=== PATIENT | male | born 1975 | race American Indian/Alaskan Native ===

== ENCOUNTER → 2022-06-21 14:50 | Outpatient (BNVA) | payer OTHER, SELFPAY | PROVIDERS: PCP Internal Medicine; Visit Provider Urology | DX: Z30.2 Encounter for sterilization (principal); F41.8 Other specified anxiety disorders | CPT/HCPCS: 55250 ==

== ENCOUNTER 2024-01-01 10:30 | Outpatient (AMB) | payer OTHER, SELFPAY ==
--- NOTE | 2024-01-01 10:31 | AM.OFFWIN_ITS ---
Intake Vital Signs 01/01/24 10:32 Height 5 ft 9 in Weight 271 lb BMI 40.0 BP 150/100 H Blood Pressure Location Lt brachial Position Sitting Pulse 79 Pulse Source Pulse Oximeter Temp 97.1 F Temp Source Temporal Artery Scan Pulse Oximetry (%) 96 Oxygen Delivery Method Room Air Intake Visit Reasons: EP ?Yeast Infection Intake Note: pt is here today for yeast infection started 1 week ago. Pt gave verbal consent to leave results on vm Patient Tobacco Use Status: Never used Tobacco Allergies No Known Allergies Allergy (Verified 01/01/24 10:58) Medication List - Last Reconciled 01/01/24 by Lorenzo Vieyra MD amlodipine 5 mg PO DAILY ketoconazole 2% 1 appl topical DAILY losartan 50 mg (2 x 25 mg) PO DAILY metoprolol tartrate 25 mg PO BID Do you need a note to return to daycare/school/sports/work: No HPI EP ?Yeast Infection HPI Details 48-year-old male presents to the office for a sick visit. Patient has noticed a rash on the right side of his penis for the past week. Coincidentally, his is suffering from an yeast infection. Does not report any symptoms of discharge or increased frequency of urination. Also gives history of erectile dysfunction. He reports his libido is low and also decreased strength in his erections. [facility] Medical History Hypertension Surgical History History of hand surgery Family History Father No problems noted. Mother No problems noted. Brother In good health Mental health disorder Sister In good health Daughter In good health Daughter In good health Daughter In good health Social History Housing: House Alcohol intake: current Alcohol intake frequency: holidays/special occasions only Patient Tobacco Use Status: Never used Tobacco Tobacco use type: Cigarette e-Cigarette/Vaping Use: Never Used Second Hand Smoke Exposure: No service: No Current occupational status: employed Cognitive needs: No Hearing needs: No Vision needs: Yes (glasses) Physical Exam Vital Signs: Last Vital Signs Temp 97.1 F 01/01/24 10:32 Pulse 79 01/01/24 10:32 BP 150/100 H 01/01/24 10:32 Pulse Ox 96 01/01/24 10:32 Oxygen Delivery Method Room Air 01/01/24 10:32 BMI result Body Mass Index 40.0 Other: External genitalia: Penis: Uncircumcised. On retraction of the foreskin, on the right lateral side. Assessment & Plan Assessment & Plan (1) Hypertension: Code(s): I10 - Essential (primary) hypertension Plan: Blood pressure is elevated. Will await blood work results before adjusting medications. (2) Balanitis: Code(s): N48.1 - Balanitis Plan: Ketoconazole has been ordered. Blood work has been ordered. Diabetes needs to be ruled out. Orders: Orders Lipid Panel Today I10 - Essential (primary) hypertension Lyme IgG/IgM w/reflex to WB Today I10 - Essential (primary) hypertension Thyroid Stimulating Hormone Today I10 - Essential (primary) hypertension Basic Metabolic Panel Today I10 - Essential (primary) hypertension Complete Blood Count no Diff Today I10 - Essential (primary) hypertension Liver Panel Today I10 - Essential (primary) hypertension UA and rflx microscopic Today I10 - Essential (primary) hypertension Hemoglobin A1c Today I10 - Essential (primary) hypertension Medications: New ketoconazole 2% 1 appl topical DAILY 30 grams 1RF Coding Level of Care Code Est Pt Level 4 (09607) Diagnoses Hypertension I10 Balanitis N48.1
[2024-01-01 10:32] VITALS: BP 150/100; PULSE 79; TEMP 36.2; O2SAT 96; BMI 40.0
== END 2024-01-01 13:31 | disposition home or self-care (01) ==
PROVIDERS: PCP Internal Medicine; Visit Provider Internal Medicine
DX: I10 Essential (primary) hypertension (principal); N48.1 Balanitis
CPT/HCPCS: 99214

== ENCOUNTER 2024-01-01 10:49 | Outpatient (REF) | payer OTHER, SELFPAY ==
[2024-01-01 13:38] LABS: Appearance Urine Clear; Color Urine Dark Yellow; Glucose Urine UA Negative (Negative); Leukocyte Esterase Urine Negative (Negative); Nitrite Urine Negative (Negative); Specific Gravity - Urine >= 1.030 (1.005-1.025); UMIC TRIGGER UA YES; Urine Blood Moderate (2+) (Negative); Urine Ketones 80 mg/dL (Negative); Urine Protein Trace mg/dL (Neg-Trace)
[2024-01-01 13:38] LABS: Hematocrit 45.6 % (42.0-52.0); Hemoglobin 15.4 g/dl (14.0-18.0); Mean Corpuscular HGB Conc 33.8 g/dl (31.0-36.0); Mean Corpuscular Hemoglobin 29.7 pg (27.0-33.0); Mean Platelet Volume 10.6 fL (9.4-12.4); Platelet Count 301 X10*3/uL (160-400); Red Blood Count 5.18 X10*6/uL (4.60-5.80); Red Cell Distribution Width 12.4 % (11.0-16.0)
[2024-01-01 13:45] LABS: Bacteria Urine None Seen (None Seen); Hyaline Casts Urine 0-2 /LPF (0-2); RBC Urine >20 /HPF (0-2); Squamous Epithelial Cell Urine 0-2 /HPF (0-2); WBC Urine 0-5 /HPF (0-5)
[2024-01-01 13:56] LABS: Alanine Aminotransferase 71 U/L (0-40); Albumin Level 4.6 g/dL (3.5-5.0); Alkaline Phosphatase 68 U/L (39-117); Anion Gap 15 (12-20); Aspartate Amino Transferase 87 U/L (5-37); Bilirubin Direct 0.4 mg/dL (0.0-0.5); Bilirubin Total 1.1 mg/dL (0.0-1.0); Blood Urea Nitrogen 13 mg/dL (9-16); Calcium 9.6 mg/dL (8.4-10.2); Carbon Dioxide 27 mmol/L (22-29); Chloride 104 mmol/L (96-108); Cholesterol 175 mg/dL (<200); Estimated Glomerular Filt Rate 55; Glucose Random 92 mg/dL (60-115); HDL Cholesterol 49 mg/dL (>40); LDL Cholesterol Calculated 106 mg/dL (<100); Potassium 3.5 mmol/L (3.3-5.1); Sodium 142 mmol/L (135-145); Total Protein 9.1 g/dL (6.5-8.0); Triglycerides 102 mg/dL (<150)
[2024-01-01 14:01] LABS: Estimated Average Glucose 94 mg/dL; Hemoglobin A1C 111.9193 umol/L; Hemoglobin A1c % 4.9 % (<6.0)
[2024-01-01 14:13] LABS: Thyroid Stimulating Hormone 1.17 uIU/mL (0.32-4.0)
[2024-01-03 13:03] LABS: Lyme Abs Screen <0.90 index
== END 2024-01-01 10:50 | disposition home or self-care (01) ==
LOC: HO.HMGCLDS 10:49
PROVIDERS: PCP Internal Medicine; Visit Provider Internal Medicine
DX: I10 Essential (primary) hypertension (principal)
CPT/HCPCS: 36415; 80048; 80061; 80076; 81001; 83036; 84443; 85027; 86617; 86618

== ENCOUNTER 2024-03-19 15:35 | Outpatient (AMB) | payer OTHER, SELFPAY ==
--- NOTE | 2024-03-19 15:37 | MHC.PC.OV ---
Vital Signs 03/19/24 15:39 Height 5 ft 9 in Weight 227 lb 2 oz BMI 33.5 BP 130/88 Blood Pressure Location Lt brachial Position Sitting Pulse 65 Pulse Source Pulse Oximeter Pulse Oximetry (%) 97 Oxygen Delivery Method Room Air Intake Visit Reasons: pe Intake Note: Patient is here today for a physical. Pin Cleaner Required: No Bedspread Folder: Not Required per policy Accompanied by: Self / Same As Patient Allergies No Known Allergies Allergy (Verified 03/20/24 15:54) Medication List - Last Reconciled 03/20/24 by Lorenzo Vieyra MD ketoconazole 2% 1 appl topical DAILY sildenafil (Viagra) 100 mg PO DAILY PRN Tobacco use date assessed: 03/19/24 Dental Screening Dental Screen Date: 03/19/24 Did you have a dental visit in the last 12 months?: Yes Did you have a dental problem in the last 6 months where you did not have access to dental care?: No Was dental information given to patient?: Patient has dentist HPI pe HPI Details 49-year-old male presents to the office requesting an annual physical. [facility] Medical History Hypertension Surgical History History of hand surgery Family History Father No problems noted. Mother No problems noted. Brother In good health Mental health disorder Sister In good health Daughter In good health Daughter In good health Daughter In good health Social History Housing: House Alcohol intake: current Alcohol intake frequency: does not drink Patient Tobacco Use Status: Never used Tobacco Tobacco use type: Cigarette e-Cigarette/Vaping Use: Never Used Second Hand Smoke Exposure: No service: No Current occupational status: employed Cognitive needs: No Hearing needs: No Vision needs: Yes (glasses) Questionnaire PHQ-9 Over the last 2 weeks, how often have you been bothered by any of the following problems? 1. Little interest or pleasure in doing things: not at all 2. Feeling down, depressed, or hopeless: not at all 3. Trouble falling or staying asleep, or sleeping too much: not at all 4. Feeling tired or having little energy: not at all 5. Poor appetite or overeating: not at all 6. Feeling bad about yourself - or that you are a failure or have let yourself or your family down: not at all 7. Trouble concentrating on things, such as reading the newspaper or watching television: not at all 8. Moving or speaking so slowly that other people could have noticed. Or the opposite - being so fidgety or restless that you have been moving around a lot more than usual: not at all 9. Thoughts that you would be better off or of hurting yourself in some way: not at all Total score: 0 Depression Screening Interpretation: Negative Depression Screening Done: Yes Source: Developed by Drs. Panchito Strong, Jaimee Antunez, Jona Brooks and colleagues, with an educational aleyda from [employer]. Thrive Questionnaire Date Thrive assessed: 03/19/24 I am a: Patient What is your living situation today?: I have a steady place to live Within the past 12 months, did the food you bought not last and you didn't have the money to get more?: Never true Within the past 12 months, did you worry whether your food would run out before you got money to buy more?: Never true Do you have trouble paying for medicines?: No Do you have trouble getting transportation to medical appointments?: No Do you have trouble paying your heating and electricity bill?: No Do you have trouble taking care of your child, family member or friend?: No Do you have trouble with day-to-day activities such as bathing, preparing meals, shopping, managing finances, etc.?: No Are you currently unemployed and looking for a job?: No Are you interested in more education?: No Currently or been in a relationship where the following occur: no concerns reported THRIVE Score: 0 AUDIT C Alcohol Use Questionnaire (AUDIT-C) 1. How often do you have a drink containing alcohol?: Never Total Score: 0 LENOORA-7 AMB Questionnaire LEOONRA-7 Date LEONORA - 7 assessed: 03/19/24 Feeling nervous, anxious, or on edge: 0 = Not at all Not being able to stop or control worryin = Not at all Worrying too much about different things: 0 = Not at all Trouble relaxin = Not at all Being so restless that it is hard to sit still: 0 = Not at all Becoming easily annoyed or irritable: 0 = Not at all Feeling afraid as if something awful might happen: 0 = Not at all Total LEONORA-7 score (0-4 normal; 5-9 mild; 10-14 moderate; 15-21 severe): 0 Source: Developed by Drs. Panchito Strong, Jaimee Antunez, Jona Brooks and colleagues, with an educational aleyda from [employer]. Physical exam (Primary Care) Vital Signs: Last Vital Signs Pulse 65 03/19/24 15:39 BP 130/88 03/19/24 15:39 Pulse Ox 97 03/19/24 15:39 Oxygen Delivery Method Room Air 03/19/24 15:39 Care Plan Goal for BP management: Blood pressure is stable. Continue current medications. BMI result Body Mass Index 33.5 BMI Assessment/Plan discussion: High (1 lb per week weight loss suggested.) BMI High, discussed plan: lifestyle, weight reduction, dietary and physical activity Tobacco/Smoking Status: Tobacco use Status Tobacco use date assessed 03/19/24 03/19/24 15:47 Patient Tobacco Use Status Never used Tobacco 03/19/24 15:47 Tobacco use type Cigarette 03/19/24 15:47 e-Cigarette/Vaping Use Never Used 03/19/24 15:47 PHQ-9: PHQ-9 Score PHQ-9: Total score 0 03/20/24 12:40 Depression Screening Interpretation: Negative Thrive Assessment: Date of Thrive Assessment Date Thrive assessed 03/19/24 03/19/24 15:47 Currently or been in a relationship where the following occur: no concerns reported Const General: cooperative and healthy appearing Nutritional Appearance: well nourished Orientation/consciousness: patient oriented x3 Limitations: no limitations HENMT Head: Yes normal to inspection Eyes General: appearance normal, both eyes and all related structures Neck Neck: Yes normal visual inspection Chest Chest palpation & inspection: normal palpation of entire chest wall Resp Effort & Inspection: normal respiratory effort Neuro General: patient oriented x3 Assessment and Plan Assessment & Plan (1) Adult general medical exam: Code(s): Z00.00 - Encounter for general adult medical examination without abnormal findings Plan: Fasting blood work has been ordered. Will call with the results. (2) Hypertension: Code(s): I10 - Essential (primary) hypertension Medications: Refilled sildenafil (Viagra) administer 30 minutes to 4 hours before activity 100 mg PO DAILY PRN 8 tabs 1RF sexual activity Coding Level of Care Code Est Pt Prev Care 40-64y(68280) Diagnoses Adult general medical exam Z00.00 Hypertension I10
[2024-03-19 15:39] VITALS: BP 130/88; PULSE 65; O2SAT 97; BMI 33.5
== END 2024-03-19 16:13 | disposition home or self-care (01) ==
PROVIDERS: PCP Internal Medicine; Visit Provider Internal Medicine
DX: Z00.00 Encounter for general adult medical examination without abnormal findings (principal); I10 Essential (primary) hypertension
CPT/HCPCS: 99396

== ENCOUNTER 2024-05-13 13:22 | Outpatient (AMB) | payer OTHER, SELFPAY ==
--- NOTE | 2024-05-13 13:43 | MHC.OFFWIV ---
Intake Vital Signs 05/13/24 13:44 Height 5 ft 9 in Weight 229 lb BMI 33.8 BP 132/84 Blood Pressure Location Lt brachial Position Sitting Pulse 65 Pulse Source Pulse Oximeter Temp 98.2 F Temp Source Oral Pulse Oximetry (%) 98 Oxygen Delivery Method Room Air Intake Visit Reasons: left foot 2nd toe purple Intake Note: pt c/o left 2nd toe bruising. Hit while hiking Saturday. No pain Patient Tobacco Use Status: Never used Tobacco Allergies No Known Allergies Allergy (Verified 05/13/24 13:43) Do you need a note to return to daycare/school/sports/work: No HPI HPI Comments History of Present Illness Details This is a 49-year-old male presenting for evaluation of discoloration in the toenail of his left 2nd toe. Patient states he went hiking up [place] on Saturday and denies any overt injury or trauma at that time. Patient states he noted the discoloration under his toenail on Saturday. Patient denies having any pain or discharge from the lesion. [facility] Medical History Hypertension Surgical History History of hand surgery Family History Father No problems noted. Mother No problems noted. Brother In good health Mental health disorder Sister In good health Daughter In good health Daughter In good health Daughter In good health Social History Housing: House Alcohol intake: current Alcohol intake frequency: does not drink Patient Tobacco Use Status: Never used Tobacco Tobacco use type: Cigarette e-Cigarette/Vaping Use: Never Used Second Hand Smoke Exposure: No service: No Current occupational status: employed Cognitive needs: No Hearing needs: No Vision needs: Yes (glasses) Review of Systems Const All systems reviewed & are unremarkable except as noted in HPI and below Reports no additional complaints Skin/Breast Reports system reviewed and no additional complaints, except as documented Neuro Reports no additional complaints Psych Reports no additional complaints Mukesh/Lymph Reports no additional complaints Physical Exam Vital Signs: Last Vital Signs Temp 98.2 F 07/31/24 13:44 Pulse 65 05/13/24 13:44 BP 132/84 05/13/24 13:44 Pulse Ox 98 05/13/24 13:44 Oxygen Delivery Method Room Air 05/13/24 13:44 BMI result Body Mass Index 33.8 Const General: cooperative, healthy appearing, comfortable, no acute distress, well developed, alert and awake Nutritional Appearance: average body habitus Orientation/consciousness: patient oriented x3 Limitations: no limitations Skin Lesions: lesion noted (subungual hematoma left 2nd toenail; non.tender to examination) Trauma: no lacerations or abrasions Wounds: no wounds Neuro General: patient oriented x3 Extrem Left lower extremity: foot (No pain to palpation of the metatarsals of L foot or phalanges of 2nd toe) Details: normal capillary refill, abnormal to inspection and toes with normal ROM; no tenderness Psych Appearance: grossly normal Mental Status: mental status grossly normal Insight: Good insight present (Psych) Judgement: Good judgement present (Psych) Assessment & Plan Assessment & Plan (1) Subungual hematoma of foot: Comment: There is no evidence of a cellulitis and no pain to palpation of the toenail. No further treatment is warranted at this time. Code(s): S90.229A - Contusion of unspecified lesser toe(s) with damage to nail, initial encounter Qualifiers: Encounter type: initial encounter Laterality: left Qualified Code(s): S90.222A - Contusion of left lesser toe(s) with damage to nail, initial encounter Plan: Hematoma will resolve on its own, patient is counseled that the toenail may fall off eventually, however no further treatment is warranted at this time. Coding Level of Care Code Est Pt Level 3 (69560) Diagnoses Subungual hematoma of left foot, initial encounter S90.222A Encounter type: initial encounter Laterality: left Time Spent (min) 20
[2024-05-13 13:44] VITALS: BP 132/84; PULSE 65; TEMP 36.8; O2SAT 98; BMI 33.8
== END 2024-05-13 14:35 | disposition home or self-care (01) ==
PROVIDERS: PCP Internal Medicine; Visit Provider Physician Assistant
DX: S90.222A Contusion of left lesser toe(s) with damage to nail, initial encounter (principal)
CPT/HCPCS: 99213

== ENCOUNTER 2024-09-24 08:27 | Outpatient (AMB) | payer OTHER, SELFPAY ==
--- NOTE | 2024-09-24 08:32 | MHC.PC.OV ---
Vital Signs 09/24/24 08:33 Height 5 ft 9 in Weight 232 lb 8 oz BMI 34.3 BP 130/90 H Blood Pressure Location Lt brachial Position Sitting Pulse 68 Pulse Source Pulse Oximeter Pulse Oximetry (%) 98 Oxygen Delivery Method Room Air Intake Visit Reasons: 6mth f/u Intake Note: Patient is here to follow up on HTN. Squadron Worker Required: No Agency Sales Management Assistant: Not Required per policy Accompanied by: Self / Same As Patient Allergies No Known Allergies Allergy (Verified 09/24/24 09:14) Medication List - Last Reconciled 09/24/24 by Katalina Restrepo PA-C losartan 50 mg PO DAILY sildenafil (Viagra) 100 mg PO DAILY PRN Tobacco use date assessed: 09/24/24 Dental Screening Dental Screen Date: 03/19/24 [facility] Medical History (Updated 09/24/24 @ 09:12 by Katalina Restrepo PA-C) Screening for colon cancer Hypertension Surgical History History of hand surgery Family History Father No problems noted. Mother No problems noted. Brother In good health Mental health disorder Sister In good health Daughter In good health Daughter In good health Daughter In good health Social History Housing: House Alcohol intake: current Alcohol intake frequency: does not drink Patient Tobacco Use Status: Never used Tobacco Tobacco use type: Cigarette e-Cigarette/Vaping Use: Never Used Second Hand Smoke Exposure: No service: No Current occupational status: employed Cognitive needs: No Hearing needs: No Vision needs: Yes (glasses) Questionnaire Thrive Questionnaire Date Thrive assessed: 03/19/24 LEONORA-7 AMB Questionnaire LEONORA-7 Date LEONORA - 7 assessed: 03/19/24 Source: Developed by Drs. Panchito Strong, Jaimee Antunez, Jona Brooks and colleagues, with an educational aleyda from [employer]. Physical exam (Primary Care) Vital Signs: Last Vital Signs Pulse 68 09/24/24 08:33 BP 130/90 H 09/24/24 08:33 Pulse Ox 98 09/24/24 08:33 Oxygen Delivery Method Room Air 09/24/24 08:33 BMI result Body Mass Index 34.3 Tobacco/Smoking Status: Tobacco use Status Tobacco use date assessed 09/24/24 09/24/24 08:38 Patient Tobacco Use Status Never used Tobacco 09/24/24 08:38 Tobacco use type Cigarette 09/24/24 08:38 e-Cigarette/Vaping Use Never Used 09/24/24 08:38 Thrive Assessment: Date of Thrive Assessment Date Thrive assessed 03/19/24 09/24/24 08:38 Coding Level of Care Code Est Pt Prev Care 40-64y(62422) Diagnoses Adult general medical exam Z00.00 Screening for colon cancer Z12.11 Hypertension I10 Assessment & Plan Assessment & Plan (1) Adult general medical exam: Code(s): Z00.00 - Encounter for general adult medical examination without abnormal findings Category: Medical Plan: see below (2) Screening for colon cancer: Code(s): Z12.11 - Encounter for screening for malignant neoplasm of colon Category: Medical Plan: see below (3) Hypertension: Code(s): I10 - Essential (primary) hypertension Category: Medical Plan: see below Plan Plan - Reschedule a follow-up visit in four weeks. - Restarting antihypertensive medication, reintroducing Losartan at a lower dose of 50 mg and reassess BP in 4 weeks - Carry out fasting blood work to monitor liver, cholesterol, and other relevant markers. - Order a colonoscopy as the patient has never undergone one. - Patient to obtain an influenza vaccine. Orders: Orders Complete Blood Count Auto Diff Today Z00.00 - Encounter for general adult medical examination without abnormal findings Comprehensive [place]. Panel Fast Today Z00.00 - Encounter for general adult medical examination without abnormal findings Liver Panel Today Z00.00 - Encounter for general adult medical examination without abnormal findings Hemoglobin A1c Today E11.9 - Type 2 diabetes mellitus without complications Vitamin B12 and Folate Today R79.89 - Other specified abnormal findings of blood chemistry C Reactive Protein Today Z00.00 - Encounter for general adult medical examination without abnormal findings Lipid Panel Today Z00.00 - Encounter for general adult medical examination without abnormal findings TSH reflex Free T4 Today Z00.00 - Encounter for general adult medical examination without abnormal findings Vitamin D 25-OH Total Today R79.89 - Other specified abnormal findings of blood chemistry Erythrocyte Sedimentation Rate Today Z00.00 - Encounter for general adult medical examination without abnormal findings Referrals Gastroenterology Referral R76.8 - Other specified abnormal immunological findings in serum, Z00.00 - Encounter for general adult medical examination without abnormal findings, Z12.11 - Encounter for screening for malignant neoplasm of colon Medications: New losartan 50 mg PO DAILY 30 tabs 2RF HTN Refilled sildenafil (Viagra) administer 30 minutes to 4 hours before activity 100 mg PO DAILY PRN 8 tabs 1RF sexual activity Scribe Plan - Not visible on output: History of Present Illness The patient is a 49-year-old male presenting for an annual physical examination. In addition the patient has a history of essential hypertension, which has been managed intermittently. He was previously on Losartan, but discontinued its use due to a medical event resulting in dizziness and high heart rate, leading to an emergency room visit. Following this, he discontinued all antihypertensive medications approximately a year ago and experienced significant weight loss, losing 60 pounds. He reports his blood pressure was significantly elevated in the past, requiring increased medication doses. Currently, he has not been on any blood pressure medication since around November or December of last year and reports no recent chest pain. The patient also has elevated liver enzymes. He experienced a severe episode of pain under his right ribs during Thanksgi, associated with nausea and vomiting, which resolved with ibuprofen by the following day. This episode was described as severe and the worst pain he has experienced, but since then, he has not had recurring episodes. There is a history of the patient's enzymes being slightly elevated; however, no continuous symptoms have been noticed post the Thanksgiving incident. In terms of cholesterol, it is noted his levels are elevated, and he has been considering starting medication for management. He exercises two times a week, despite some disruption from holiday activities. He denies any recent intentional or unintentional weight gain or loss post the last significant weight loss. 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 - Exercise: Engages in physical activity by attending the gym twice a week. - Alcohol: Drinks rarely, typically only during holidays. - Smoking: Denies current or past smoking. - Substance Use: Denies use of drugs. - Nutrition: Practices conscious diet and exercise for weight management. Review of Systems - Cardiovascular: Denies chest pain. - Gastrointestinal: Reports an episode of severe pain with nausea and vomiting in the past, currently resolved. - Genitourinary: Denies issues with urination. - Endocrine: Denies significant weight loss or gain after intentional weight loss. Physical Exam Appearance: Alert. Oriented X3. No acute distress. Head: Normal external exam. Normocephalic. Atraumatic. No [place] signs noted. No raccoon eyes noted. Eyes: Pupils are equal, round, and reactive to light. Extraocular movements intact. Conjunctiva and sclera normal. Eyelids normal. Ears: External auditory canal normal. Tympanic membranes normal. Throat: Pharynx normal. Uvula midline. Moist mucous membranes. No trismus noted. No drooling noted. No muffled voice noted. Neck: Normal inspection. Neck supple. Full range of motion. No adenopathy. Thyroid Normal. No meningeal signs. No neck mass noted. Cardiovascular: Normal heart rate and rhythm. Heart sound normal. No murmurs noted. Pulses normal throughout. Respiratory: No respiratory distress. Painless inspiration. Breath sounds normal. No wheezes/rales/rhonchi noted. Chest nontender. No accessory muscle usage noted or decreased air movement noted. Abdomen: Soft and nontender. Bowel sounds normal in all 4 quadrants. No distention noted. No organomegaly noted. No visible injury noted. Back: No costovertebral angle tenderness. Full range of motion noted. Skin: Skin warm and dry. Normal skin color. Normal skin turgor. No rashes/lesions/lacerations noted. Extremities: No lower extremity edema. Extremities exhibit normal range of motion. Extremities nontender. Neuro: Oriented X 3. No motor deficit. No sensory deficit. Reflexes normal. Results - Labs: Liver enzymes noted to be slightly elevated; no anemia detected. - Tests: Testing for Lyme disease returned negative. Plan - Reschedule a follow-up visit in four weeks. - Restarting antihypertensive medication, reintroducing Losartan at a lower dose of 50 mg and reassess BP in 4 weeks - Carry out fasting blood work to monitor liver, cholesterol, and other relevant markers. - Order a colonoscopy as the patient has never undergone one. - Patient to obtain an influenza vaccine. Patient was informed and verbally consented to the use of an ambient scribe for clinic note documentation during this visit. Discussion Notes During the consultation, I discussed with the patient the importance of addressing his elevated blood pressure and potential reintroduction of medication. We agreed to initiate Losartan at a lower dose, considering his previous adverse reaction to a higher dosage. I explained the necessity of conducting fasting blood work to further assess liver function and cholesterol levels. We also discussed the need for a colonoscopy due to age-related screening recommendations. I emphasized the importance of continued lifestyle modifications, including exercise and a monitored diet, in managing his cardiovascular risks. The patient was advised to get a flu shot and agreed to the proposed management plan, understanding the potential benefits and risks associated with each step. Patient Instructions - Return for follow-up in four weeks. - Restart blood pressure medication as advised, starting at a lower dose. - Schedule and prepare for fasting blood work. - Book an appointment for a colonoscopy. - Obtain flu vaccination. - Maintain diet and exercise regimen. - Notify us if you experience any new symptoms or exacerbation of current symptoms. - Contact us if you have any questions or concerns regarding the plan.
[2024-09-24 08:33] VITALS: BP 130/90; PULSE 68; O2SAT 98; BMI 34.3
== END 2024-09-24 09:10 | disposition home or self-care (01) ==
PROVIDERS: PCP Internal Medicine; Visit Provider Physician Assistant Medical
DX: Z00.00 Encounter for general adult medical examination without abnormal findings (principal); Z12.11 Encounter for screening for malignant neoplasm of colon; I10 Essential (primary) hypertension

== ENCOUNTER → 2024-09-24 08:27 | Outpatient (BNVA) | payer OTHER, SELFPAY | PROVIDERS: PCP Internal Medicine; Visit Provider Internal Medicine ==

== ENCOUNTER 2024-12-07 10:17 | Outpatient (REF) | payer OTHER, SELFPAY ==
[2024-12-07 10:44] LABS: MANUAL DIFF FLAG NO
[2024-12-07 10:58] LABS: Basophils Percent Auto 0.6 % (0-2); Eosinophils Absolute Auto 0.1 X10*3/uL (0.0-0.4); Eosinophils Percent Auto 2.1 % (0-4); Hematocrit 46.1 % (42.0-52.0); Hemoglobin 15.5 g/dl (14.0-18.0); Imm Gran Abs Auto 0.02 X10*3/uL (0.00-0.03); Imm Gran Pct Auto 0.3 % (0.0-0.4); Lymphocytes Absolute Auto 1.9 X10*3/uL (1.2-4.9); Lymphocytes Percent Auto 30.9 % (20-40); Mean Corpuscular HGB Conc 33.6 g/dl (31.0-36.0); Mean Corpuscular Hemoglobin 29.4 pg (27.0-33.0); Mean Corpuscular Volume 87.5 fL (80.0-98.0); Mean Platelet Volume 9.5 fL (9.4-12.4); Monocytes Absolute Auto 0.4 X10*3/uL (0.1-1.2); Monocytes Percent Auto 5.7 % (2-11); Neutrophils Absolute Auto 3.8 x10*3/uL (2.0-8.3); Neutrophils Percent Auto 60.4 % (45-73); Platelet Count 261 X10*3/uL (160-400); Red Blood Count 5.27 X10*6/uL (4.60-5.80); Red Cell Distribution Width 12.5 % (11.0-16.0); White Blood Count 6.3 X10*3/uL (4.8-10.8)
[2024-12-07 11:12] LABS: Estimated Average Glucose 88 mg/dL; Hemoglobin A1C 107.5118 umol/L; Hemoglobin A1c % 4.7 % (<6.0); Total Hemoglobin (HGBA1C) 3926.4214 umol/L
[2024-12-07 11:49] LABS: Erythrocyte Sedimentation Rate 14 MM/HR (0-15)
[2024-12-07 11:55] LABS: Vitamin D 25-OH Total 19.9 ng/mL (>30)
[2024-12-07 11:59] LABS: Folate 12.8 ng/mL (> or = 4.0); Vitamin B12 481 pg/mL (200-900)
[2024-12-07 12:11] LABS: Anion Gap 13 (12-20)
[2024-12-07 12:16] LABS: Alanine Aminotransferase 31 U/L (0-40); Albumin Level 4.3 g/dL (3.5-5.0); Alkaline Phosphatase 63 U/L (39-117); Aspartate Amino Transferase 36 U/L (5-37); Bilirubin Direct 0.2 mg/dL (0.0-0.5); Bilirubin Total 0.9 mg/dL (0.0-1.0); Blood Urea Nitrogen 10 mg/dL (9-16); C Reactive Protein 0.14 mg/dL (< or = 0.50); Calcium 9.3 mg/dL (8.4-10.2); Carbon Dioxide 29 mmol/L (22-29); Chloride 105 mmol/L (96-108); Cholesterol 194 mg/dL (<200); Estimated Glomerular Filt Rate > 60; Glucose Fasting 98 mg/dL (60-99); HDL Cholesterol 54 mg/dL (>40); LDL Cholesterol Calculated 103 mg/dL (<100); Potassium 4.2 mmol/L (3.3-5.1); Sodium 143 mmol/L (135-145); Total Protein 8.8 g/dL (6.5-8.0); Triglycerides 188 mg/dL (<150)
== END 2024-12-07 10:18 | disposition home or self-care (01) ==
LOC: HO.LAB 10:17
PROVIDERS: Absent Provider Internal Medicine; PCP Internal Medicine; Visit Provider Physician Assistant Medical
DX: Z00.00 Encounter for general adult medical examination without abnormal findings (principal); E11.9 Type 2 diabetes mellitus without complications; R79.89 Other specified abnormal findings of blood chemistry
CPT/HCPCS: 36415; 80053; 80061; 80076; 82248; 82306; 82607; 82746; 83036; 84443; 85025; 85652; 86140

== ENCOUNTER 2024-12-10 10:14 | Outpatient (AMB) | payer OTHER, SELFPAY ==
--- NOTE | 2024-12-10 10:50 | MHC.PC.OV ---
Vital Signs 12/10/24 10:52 Height 5 ft 9 in Weight 245 lb 8 oz BMI 36.3 BP 150/90 H Blood Pressure Location Lt brachial Position Sitting Pulse 73 Pulse Source Pulse Oximeter Temp 97.5 F Temp Source Temporal Artery Scan Pulse Oximetry (%) 98 Oxygen Delivery Method Room Air Intake Visit Reasons: 4 week f/u Intake Note: Patient is here to follow up on HTN. 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 Required: No Staffing Analyst: Not Required per policy Accompanied by: Self / Same As Patient Allergies No Known Allergies Allergy (Verified 12/10/24 11:12) Medication List - Last Reconciled 12/10/24 by Katalina Restrepo PA-C losartan 50 mg PO DAILY sildenafil (Viagra) 100 mg PO DAILY PRN Tobacco use date assessed: 12/10/24 Dental Screening Dental Screen Date: 12/10/24 Did you have a dental visit in the last 12 months?: Yes Did you have a dental problem in the last 6 months where you did not have access to dental care?: No Was dental information given to patient?: Patient has dentist ON LICENSE OF [facility] Medical History (Updated 12/10/24 @ 11:15 by Katalina Restrepo PA-C) Vitamin D deficiency Hypertriglyceridemia Hyperlipidemia with target LDL less than 100 Obesity (BMI 30-39.9) Screening for colon cancer Hypertension Surgical History History of hand surgery Family History Father No problems noted. Mother No problems noted. Brother In good health Mental health disorder Sister In good health Daughter In good health Daughter In good health Daughter In good health Social History Housing: House Alcohol intake: current Alcohol intake frequency: does not drink Patient Tobacco Use Status: Never used Tobacco Tobacco use type: Cigarette e-Cigarette/Vaping Use: Never Used Second Hand Smoke Exposure: No service: No Current occupational status: employed Cognitive needs: No Hearing needs: No Vision needs: Yes (glasses) Questionnaire PHQ-9 Over the last 2 weeks, how often have you been bothered by any of the following problems? 1. Little interest or pleasure in doing things: not at all 2. Feeling down, depressed, or hopeless: not at all 3. Trouble falling or staying asleep, or sleeping too much: not at all 4. Feeling tired or having little energy: not at all 5. Poor appetite or overeating: not at all 6. Feeling bad about yourself - or that you are a failure or have let yourself or your family down: not at all 7. Trouble concentrating on things, such as reading the newspaper or watching television: not at all 8. Moving or speaking so slowly that other people could have noticed. Or the opposite - being so fidgety or restless that you have been moving around a lot more than usual: not at all 9. Thoughts that you would be better off or of hurting yourself in some way: not at all Total score: 0 Depression Screening Interpretation: Negative Depression Screening Done: Yes Source: Developed by Drs. Panchito Strong, Jaimee Antunez, Jona Brooks and colleagues, with an educational aleyda from [employer]. Thrive Questionnaire Date Thrive assessed: 12/10/24 I am a: Patient What is your living situation today?: I have a steady place to live Within the past 12 months, did the food you bought not last and you didn't have the money to get more?: Never true Within the past 12 months, did you worry whether your food would run out before you got money to buy more?: Never true Do you have trouble paying for medicines?: No Do you have trouble getting transportation to medical appointments?: No Do you have trouble paying your heating and electricity bill?: No Do you have trouble taking care of your child, family member or friend?: No Do you have trouble with day-to-day activities such as bathing, preparing meals, shopping, managing finances, etc.?: No Are you currently unemployed and looking for a job?: No Are you interested in more education?: No Please select the resources that you would like help with: None Currently or been in a relationship where the following occur: No concerns reported THRIVE Score: 0 AUDIT C Alcohol Use Questionnaire (AUDIT-C) 1. How often do you have a drink containing alcohol?: Never Total Score: 0 LEONORA-7 AMB Questionnaire LEONORA-7 Date LEONORA - 7 assessed: 12/10/24 Feeling nervous, anxious, or on edge: 0 = Not at all Not being able to stop or control worryin = Not at all Worrying too much about different things: 0 = Not at all Trouble relaxin = Not at all Being so restless that it is hard to sit still: 0 = Not at all Becoming easily annoyed or irritable: 0 = Not at all Feeling afraid as if something awful might happen: 0 = Not at all Total LEONORA-7 score (0-4 normal; 5-9 mild; 10-14 moderate; 15-21 severe): 0 Source: Developed by Drs. Panchito Strong, Jaimee Antunez, Jona Brooks and colleagues, with an educational aleyda from [employer]. Physical exam (Primary Care) Vital Signs: Last Vital Signs Temp 97.5 F 12/10/24 10:52 Pulse 73 12/10/24 10:52 BP 150/90 H 12/10/24 10:52 Pulse Ox 98 12/10/24 10:52 Oxygen Delivery Method Room Air 12/10/24 10:52 Care Plan Goal for BP management: <130/80. Patient currently on losartan 50 mg although reports he is not taking it daily and he just took it right before arrival. I explained to him he will need to recheck his blood pressure daily for the next 2 weeks and bring it to his next appointment either in person or telehealth to determine if patient is on appropriate dose of losartan. BMI result Body Mass Index 36.3 BMI Assessment/Plan discussion: High BMI High, discussed plan: lifestyle, weight reduction, dietary, physical activity and alcohol moderation Tobacco/Smoking Status: Tobacco use Status Tobacco use date assessed 12/10/24 12/10/24 10:57 Patient Tobacco Use Status Never used Tobacco 12/10/24 10:57 Tobacco use type Cigarette 12/10/24 10:57 e-Cigarette/Vaping Use Never Used 12/10/24 10:57 PHQ-9: PHQ-9 Score PHQ-9: Total score 0 12/10/24 10:57 Depression Screening Interpretation: Negative Thrive Assessment: Date of Thrive Assessment Date Thrive assessed 12/10/24 12/10/24 10:57 Currently or been in a relationship where the following occur: No concerns reported Coding Level of Care Code Est Pt Level 4 (18840) Complex EM visit Add On G2211 Diagnoses Hypertension I10 Obesity (BMI 30-39.9) E66.9 Hyperlipidemia with target LDL less than 100 E78.5 Hypertriglyceridemia E78.1 Vitamin D deficiency E55.9 Assessment & Plan Assessment & Plan (1) Hypertension: Code(s): I10 - Essential (primary) hypertension Category: Medical (2) Obesity (BMI 30-39.9): Code(s): E66.9 - Obesity, unspecified Category: Medical Plan: Patient has improved his diet and exercise regimen. Condition is chronic and stable continue to monitor. (3) Hyperlipidemia with target LDL less than 100: Code(s): E78.5 - Hyperlipidemia, unspecified Category: Medical Plan: LDL 103. Goal is less than 100. Patient declined statin at this time will trial diet and exercise. Condition is chronic and stable will continue to monitor. (4) Hypertriglyceridemia: Code(s): E78.1 - Pure hyperglyceridemia Category: Medical Plan: Patient declined starting any cholesterol-lowering medications at this time. He would like to trial better diet and exercise regimen. Condition is chronic and stable continue to monitor. (5) Vitamin D deficiency: Code(s): E55.9 - Vitamin D deficiency, unspecified Category: Medical Plan: Patient to take [id number] vitamin-D supplements. Condition is chronic and stable continue to monitor. Plan Plan The current management includes monitoring home blood pressure regularly, and increasing Losartan to 100 mg daily if levels remain elevated consistently. For hyperlipidemia management, the patient will focus on dietary and exercise interventions initially, deferring pharmacological treatment due to concerns over side effects. To address vitamin D deficiency, he will resume supplementation with [id number]-jyuzocn vitamin D. A follow-up will be conducted via telehealth in two weeks to reassess blood pressure readings. Medications: Refilled sildenafil (Viagra) administer 30 minutes to 4 hours before activity 100 mg PO DAILY PRN 8 tabs 1RF sexual activity Patient Instructions: Patient Instructions - Monitor your blood pressure at home daily and record the readings. - Follow a healthy diet and engage in regular exercise to manage cholesterol levels. - Resume taking vitamin D supplements as previously discussed. - Report any consistent blood pressure readings above 150/90 mmHg over two weeks. - Expect a call for scheduling a colonoscopy appointment. Scribe Plan - Not visible on output: History of Present Illness The patient is a 49-year-old male presenting for follow-up of his blood pressure and lipid management. For his Essential Hypertension, he has been prescribed Losartan, but adherence has been inconsistent, particularly due to routine changes in winter. His current blood pressure is 150/90 mmHg. He has not been regularly checking his blood pressure at home, making management and potential dose adjustment challenging. Regarding hyperlipidemia, laboratory results indicated elevated triglycerides at 188 mg/dL and LDL at 103 mg/dL, slightly above the preferred level for non-diabetics. The patient has opted for lifestyle modifications to manage this condition, focusing on dietary changes and increased physical activity. An additional concern is his vitamin D deficiency, which he plans to address by resuming supplementation. Social History - Exercise and increased physical activity are emphasized for managing cholesterol and hypertension. - Challenges with regular medication adherence during winter due to routine changes. - Prefers lifestyle modifications over medication due to concern about potential side effects of hyperlipidemia medications. Review of Systems - Cardiovascular: Reports no chest pain, dizziness, or syncope. - General: Denies recent lower extremity edema. Physical Exam Appearance: Alert. Oriented X3. No acute distress. Head: Normal external exam. Normocephalic. Atraumatic. Eyes: Pupils are equal, round, and reactive to light. Extraocular movements intact. Conjunctiva and sclera normal. Eyelids normal. Ears: External auditory canal normal. Tympanic membranes normal. Throat: Pharynx normal. Uvula midline. Moist mucous membranes. Neck: Normal inspection. Neck supple. Full range of motion. No adenopathy. Thyroid Normal. No meningeal signs. No neck mass noted. Cardiovascular: Normal heart rate and rhythm. Heart sound normal. No murmurs noted. Pulses normal throughout. Respiratory: No respiratory distress. Painless inspiration. Breath sounds normal. No wheezes/rales/rhonchi noted. Chest nontender. No accessory muscle usage noted or decreased air movement noted. Abdomen: Soft and nontender. Bowel sounds normal in all 4 quadrants. No distention noted. No organomegaly noted. No visible injury noted. Back: No costovertebral angle tenderness. Full range of motion noted. Skin: Skin warm and dry. Normal skin color. Normal skin turgor. No rashes/lesions/lacerations noted. Extremities: No lower extremity edema. Extremities exhibit normal range of motion. Extremities nontender. Neuro: Oriented X 3. No motor deficit. No sensory deficit. Reflexes normal. Results - Labs: Triglycerides at 188 mg/dL; LDL cholesterol at 103 mg/dL; Total cholesterol at 194 mg/dL; Vitamin D deficiency noted in prior labs. Plan The current management includes monitoring home blood pressure regularly, and increasing Losartan to 100 mg daily if levels remain elevated consistently. For hyperlipidemia management, the patient will focus on dietary and exercise interventions initially, deferring pharmacological treatment due to concerns over side effects. To address vitamin D deficiency, he will resume supplementation with sztc-[id number]-[id number] vitamin D. A follow-up will be conducted via telehealth in two weeks to reassess blood pressure readings. Patient was informed and verbally consented to the use of an ambient scribe for clinic note documentation during this visit. Discussion Notes I discussed the plan to monitor blood pressure daily at home and report consistent readings of 150/90 mmHg for potential medication dose adjustments. The patient understands the aim for a target blood pressure of under 130/80 mmHg. We also explored lifestyle modifications for managing hyperlipidemia, emphasizing the importance of diet and exercise over medication due to side effect concerns. The patient has agreed to resume an [id number] vitamin D supplement. Follow-up arrangements include a telehealth visit in two weeks and another review in six months if blood pressure stabilizes. Patient Instructions - Monitor your blood pressure at home daily and record the readings. - Follow a healthy diet and engage in regular exercise to manage cholesterol levels. - Resume taking vitamin D supplements as previously discussed. - Report any consistent blood pressure readings above 150/90 mmHg over two weeks. - Expect a call for scheduling a colonoscopy appointment.
[2024-12-10 10:52] VITALS: BP 150/90; PULSE 73; TEMP 36.4; O2SAT 98; BMI 36.3
== END 2024-12-10 11:20 | disposition home or self-care (01) ==
PROVIDERS: PCP Internal Medicine; Visit Provider Physician Assistant Medical
DX: I10 Essential (primary) hypertension (principal); E66.9 Obesity, unspecified; Z68.36 Body mass index [BMI] 36.0-36.9, adult; E78.5 Hyperlipidemia, unspecified; E78.1 Pure hyperglyceridemia; E55.9 Vitamin D deficiency, unspecified

== ENCOUNTER → 2024-12-10 10:14 | Outpatient (BNVA) | payer OTHER, SELFPAY | PROVIDERS: PCP Internal Medicine; Visit Provider Physician Assistant Medical ==